=== PATIENT | male | born 1955 | race Caucasian/White ===

== ENCOUNTER → 2016-11-16 | Outpatient (CLI) | payer MEDICARE ==
[~2016-11-16] MED LIST: AMIO200T42 PO; CARV3.122 PO; DIGO125T PO; DIGO250T PO; DOCU-30 PO; FOLI-17 PO; FURO-92 PO; FURO20TA3 PO; LISI-167 PO; LISI5TAB7 PO; METO50TA82 PO; NICO1PAT4 TD; POTA20TA14 PO; POTA20TA6 PO; THIA100T6 PO; WARF5TAB PO; WARF5TAB7 PO-COUM
== END | disposition home or self-care (01) ==
LOC: CFH 12:44
PROVIDERS: ATTEND Internal Medicine Cardiovascular Disease
DX: I48.91 Unspecified atrial fibrillation (principal)
CPT/HCPCS: 93306

== ENCOUNTER 2016-11-19 08:06 | Observation (INO) | payer MEDICARE ==
[2016-11-18 11:53] LABS: ASPARTATE AMINO TRANSFERASE 33 U/L (15-37); BLOOD UREA NITROGEN 17 mg/dL (7-18)
[~2016-11-19] VITALS: Ht 182.9 cm; Wt 80.1 kg
[~2016-11-19 08:06] MED LIST changes: +METO75TA PO; +NITR0.4T8 SL; +POTA20PA8 PO; +SPIR25TA3 PO; +WARF5TAB7 PO
[2016-11-19] MEDS: SODIUM CHLORIDE 0.9% 1,000 ML IV SCH ×2 (08:54→15:46)
[2016-11-19 09:08] VITALS: BP 129/85
[2016-11-19] MEDS ORDERED: FENTANYL PF 250 MCG/5ML ONE (10:21)
[2016-11-19] MEDS ORDERED: MIDAZOLAM 1 MG/ML, 5ML ONE (10:22)
[2016-11-19] MEDS ORDERED: CEFAZOLIN 1,000 MG ONE (10:50)
[2016-11-19] MEDS ORDERED: PROPOFOL 10 MG/ML, 20ML ONE (10:50)
[2016-11-19] MEDS ORDERED: LIDOCAINE 2%, 20ML ONE (11:23)
[2016-11-19] MEDS ORDERED: ZOLPIDEM 5MG TABLET PO PRN (12:00)
[2016-11-19] MEDS ORDERED: NITROGLYCERIN 0.4 MG BOTTLE (25 TABS) SL SCH (12:00)
[2016-11-19] MEDS ORDERED: HYDROcodone/APAP 5/325 TABLET PO PRN (12:00)
[2016-11-19] MEDS ORDERED: ACETAMINOPHEN 325 MG TABLET PO PRN (12:30)
[2016-11-19] MEDS ORDERED: OXYcodone 5 MG/5 ML ORAL.SOL UDC PO PRN (12:30)
[2016-11-19] MEDS ORDERED: ONDANSETRON 2MG/ML, 2ML IVPush PRN (12:30)
[2016-11-19] MEDS ORDERED: ALBUTEROL/IPRATROPIUM 2.5MG/0.5MG, 3 ML NPPB PRN (12:30)
[2016-11-19] MEDS ORDERED: FENTANYL PF 100 MCG/2ML IV PRN (12:30)
[2016-11-19] MEDS ORDERED: HYDROmorphone 1 MG/ML, 1ML IV PRN (12:30)
[2016-11-19] MEDS ORDERED: MIDAZOLAM 1 MG/ML, 2ML IV PRN (12:30)
[2016-11-19] MEDS ORDERED: NITROGLYCERIN 0.4 MG BOTTLE (25 TABS) SL PRN (13:39)
[2016-11-19] MEDS ORDERED: NICOTINE 14MG/24 HR PATCH.TD24 TD SCH (14:00)
[2016-11-19] MEDS: CEFAZOLIN PMX 1GM/50ML 50 ML IVPB SCH ×2 (16:02→23:35)
[2016-11-19 19:12] VITALS: BP 134/87
[2016-11-19 20:00] VITALS: BP 134/87
[2016-11-19] MEDS: METOPROLOL TARTRATE 25 MG TABLET PO SCH (21:33)
[2016-11-19] MEDS: SODIUM CHLORIDE FLUSH 10ML SYR IVF SCH (21:36)
[2016-11-20 00:39] VITALS: BP 124/88
[2016-11-20 06:43] VITALS: BP 129/89
[2016-11-20] MEDS: METOPROLOL TARTRATE 25 MG TABLET PO SCH (07:32)
[2016-11-20] MEDS: SODIUM CHLORIDE FLUSH 10ML SYR IVF SCH (07:33)
[2016-11-20] MEDS ORDERED: FOLIC ACID 1 MG TABLET PO SCH (09:00)
[2016-11-20] MEDS ORDERED: DIGOXIN 0.125 MG TABLET PO SCH (09:00)
[2016-11-20] MEDS ORDERED: POTASSIUM CHLORIDE 20 MEQ PACKET PO SCH (09:00)
[2016-11-20] MEDS ORDERED: FUROSEMIDE 40 MG TABLET PO SCH (09:00)
[2016-11-20] MEDS ORDERED: LISINOPRIL 5 MG TABLET PO SCH (09:00)
[2016-11-20] MEDS ORDERED: SPIRONOLACTONE 25 MG TABLET PO SCH (09:00)
[2016-11-20] MEDS ORDERED: WARFARIN 5 MG TABLET PO-COUM SCH (18:00)
== END 2016-11-20 11:59 | disposition home or self-care (01) ==
LOC: CACL 08:06 → EDSTATUS 10:00 → ORIP 12:01 → 5SO 13:22
PROVIDERS: ADMIT Internal Medicine Cardiovascular Disease; ATTEND Internal Medicine Cardiovascular Disease
DX: I42.9 Cardiomyopathy, unspecified (principal); I50.9 Heart failure, unspecified; I48.91 Unspecified atrial fibrillation; I49.01 Ventricular fibrillation; I10 Essential (primary) hypertension; Z72.0 Tobacco use
CPT/HCPCS: 33249; 36005; 36415; 71010; 71020; 80053; 85025; 85610; 93005; 93640; 96365; 96366; C1722; C1892; C1894; C1895; G0378; J0690; J2250; J2704; J3010; J3490; Q9967

== ENCOUNTER 2016-12-20 11:31 | Inpatient (IN) | payer MEDICARE ==
[~2016-12-20] VITALS: Ht 182.9 cm; Wt 77.2 kg
[2016-12-20] MEDS ORDERED: SODIUM CHLORIDE FLUSH 10ML SYR IVF ONE (12:00)
[2016-12-20 12:16] LABS: BLOOD UREA NITROGEN 12 mg/dL (7-18)
[2016-12-20 12:19] LABS: ASPARTATE AMINO TRANSFERASE 47 U/L (15-37)
[2016-12-20 12:28] LABS: IS PT STATUS REG ER OR PRE ER? YES
[2016-12-20] MEDS ORDERED: METOPROLOL 1 MG/ML, 5ML IVPush ONE ×2 (13:00→14:30)
[2016-12-20] MEDS ORDERED: METOPROLOL 1 MG/ML, 5ML ONE ×2 (13:13→14:33)
[2016-12-20] MEDS ORDERED: LORazepam 2 MG/ML, 1ML ONE (13:15)
[2016-12-20] MEDS ORDERED: LORazepam 2 MG/ML, 1ML IVPush ONE (13:30)
[2016-12-20] MEDS: SODIUM CHLORIDE 0.9% 1,000 ML IV SCH (13:47)
[2016-12-20] MEDS: ENOXAPARIN 40 MG/0.4 ML SQ SCH (13:47)
[2016-12-20] MEDS ORDERED: NICOTINE 14MG/24 HR PATCH.TD24 ONE (13:53)
[2016-12-20] MEDS ORDERED: DIGOXIN 0.25 MG/ML, 2ML ONE (13:53)
[2016-12-20] MEDS ORDERED: morphine SULFATE 10 MG/ML, 1ML IVPush PRN (14:00)
[2016-12-20] MEDS ORDERED: LABETALOL 5MG/ML, 20ML IVPush PRN (14:00)
[2016-12-20] MEDS ORDERED: LORazepam 0.5MG TABLET PO PRN (14:00)
[2016-12-20] MEDS ORDERED: NITROGLYCERIN 0.4 MG BOTTLE (25 TABS) SL SCH (14:00)
[2016-12-20] MEDS ORDERED: POLYETHYLENE GLYCOL 17 GM PACKET PO PRN (14:00)
[2016-12-20] MEDS ORDERED: NICOTINE 14MG/24 HR PATCH.TD24 TD SCH (14:00)
[2016-12-20] MEDS ORDERED: GUAIFENESIN/DM 200-20MG, 10ML UDC PO PRN (14:00)
[2016-12-20] MEDS ORDERED: DIGOXIN 0.25 MG/ML, 2ML IVPush ONE ×2 (14:00→20:00)
[2016-12-20] MEDS ORDERED: ONDANSETRON ODT 4 MG PO PRN (14:00)
[2016-12-20] MEDS ORDERED: LORazepam 1MG TABLET PO PRN ×4 (14:00)
[2016-12-20] MEDS ORDERED: ONDANSETRON 2MG/ML, 2ML IVPush PRN (14:00)
[2016-12-20] MEDS ORDERED: LORazepam 2 MG/ML, 1ML IV PRN ×5 (14:00)
[2016-12-20] MEDS: NICOTINE 7 MG/24 HR PATCH.TD24 TD SCH (14:00)
[2016-12-20] MEDS ORDERED: MAGNESIUM SULFATE PMX 2GM/50ML 50 ML IV ONE (15:00)
[2016-12-20 16:28] VITALS: BP 146/95
[2016-12-20] MEDS: METOPROLOL TARTRATE 100 MG TABLET PO SCH (17:14)
[2016-12-20] MEDS: POTASSIUM CHLORIDE 20 MEQ, MAGNESIUM SULFATE 1 GM, FOLIC ACID 1 MG, THIAMINE 100 MG, MV... IV SCH (17:18)
[2016-12-20 17:49] LABS: DAU SCREEN DISCLAIMER
[2016-12-20] MEDS ORDERED: WARFARIN 5 MG TABLET PO-COUM ONE (18:00)
[2016-12-20 19:35] VITALS: BP 114/79
[2016-12-20 20:00] VITALS: BP 119/79
[2016-12-20 21:23] LABS: IS PT STATUS REG ER OR PRE ER? NO
[2016-12-21 01:30] VITALS: BP 130/85
[2016-12-21] MEDS: SODIUM CHLORIDE 0.9% 1,000 ML IV SCH (01:30)
[2016-12-21 05:47] LABS: ASPARTATE AMINO TRANSFERASE 42 U/L (15-37); BLOOD UREA NITROGEN 15 mg/dL (7-18)
[2016-12-21] MEDS: METOPROLOL TARTRATE 100 MG TABLET PO SCH ×2 (06:08→17:35)
[2016-12-21 06:14] LABS: IS PT STATUS REG ER OR PRE ER? NO
[2016-12-21 07:07] VITALS: BP 129/82
[2016-12-21] MEDS: SENNA/DOCUSATE TABLET PO SCH (09:00)
[2016-12-21] MEDS ORDERED: SODIUM PHOSPHATE 4 MEQ/ML IV SCH (09:00)
[2016-12-21] MEDS ORDERED: SODIUM PHOSPHATE 30 MMOL in SODIUM CHLORIDE 0.9% 500 ML IV ONE (09:00)
[2016-12-21] MEDS ORDERED: DIGOXIN 0.25 MG/ML, 2ML IVPush SCH (09:30)
[2016-12-21] MEDS: LISINOPRIL 5 MG TABLET PO SCH (09:59)
[2016-12-21] MEDS: FOLIC ACID 1 MG TABLET PO SCH (09:59)
[2016-12-21] MEDS: POTASSIUM CHLORIDE 20 MEQ TAB.ER.PRT PO SCH ×2 (09:59→17:36)
[2016-12-21] MEDS: SPIRONOLACTONE 25 MG TABLET PO SCH (09:59)
[2016-12-21] MEDS ORDERED: ACETAMINOPHEN 325 MG TABLET PO PRN (10:00)
[2016-12-21 10:38] VITALS: BP 117/79
[2016-12-21] MEDS: DIGOXIN 0.125 MG TABLET PO SCH (10:40)
[2016-12-21] MEDS ORDERED: SPIRONOLACTONE 25 MG TABLET PO SCH (11:00)
[2016-12-21 13:38] VITALS: BP 128/90
[2016-12-21] MEDS: NICOTINE 7 MG/24 HR PATCH.TD24 TD SCH (13:47)
[2016-12-21] MEDS: ENOXAPARIN 40 MG/0.4 ML SQ SCH (14:00)
[2016-12-21 17:31] VITALS: BP 120/82
[2016-12-21] MEDS: POTASSIUM CHLORIDE 20 MEQ, MAGNESIUM SULFATE 1 GM, FOLIC ACID 1 MG, THIAMINE 100 MG, MV... IV SCH (17:34)
[2016-12-21] MEDS ORDERED: WARFARIN 5 MG TABLET PO-COUM ONE (18:00)
[2016-12-21 20:24] VITALS: BP 119/73
[2016-12-22 02:00] VITALS: BP 134/100
[2016-12-22] MEDS: METOPROLOL TARTRATE 100 MG TABLET PO SCH (04:53)
[2016-12-22 05:19] LABS: BLOOD UREA NITROGEN 12 mg/dL (7-18)
[2016-12-22 06:51] VITALS: BP 126/82
[2016-12-22] MEDS: LISINOPRIL 5 MG TABLET PO SCH (08:34)
[2016-12-22] MEDS: DIGOXIN 0.125 MG TABLET PO SCH (08:34)
[2016-12-22] MEDS: SPIRONOLACTONE 25 MG TABLET PO SCH (08:35)
[2016-12-22] MEDS: SENNA/DOCUSATE TABLET PO SCH (08:35)
[2016-12-22] MEDS: FOLIC ACID 1 MG TABLET PO SCH (08:35)
[2016-12-22] MEDS ORDERED: WARFARIN 7.5 MG TABLET PO-COUM ONE (18:00)
== END 2016-12-22 09:07 | disposition left against medical advice (07) | DRG 309 ==
LOC: ED 13:31 → EDIP 13:32 → ED 14:20 → 5SO 15:14
PROVIDERS: ADMIT Hospitalist; ATTEND Hospitalist
PROC: 4B02XTZ Measurement of Cardiac Defibrillator, External Approach (ICD-10-PCS; principal; 2016-12-21)
DX: I48.1 Persistent atrial fibrillation (principal); I50.22 Chronic systolic (congestive) heart failure; F10.239 Alcohol dependence with withdrawal, unspecified; F17.203 Nicotine dependence unspecified, with withdrawal; D68.69 Other thrombophilia; I42.9 Cardiomyopathy, unspecified; K70.10 Alcoholic hepatitis without ascites; I11.0 Hypertensive heart disease with heart failure; E83.42 Hypomagnesemia; D64.9 Anemia, unspecified; D69.6 Thrombocytopenia, unspecified; D75.89 Other specified diseases of blood and blood-forming organs; Z79.01 Long term (current) use of anticoagulants; Z79.899 Other long term (current) drug therapy; Z86.74 Personal history of sudden cardiac arrest; Z95.810 Presence of automatic (implantable) cardiac defibrillator; Z71.41 Alcohol abuse counseling and surveillance of alcoholic
CPT/HCPCS: 36415; 71010; 76700; 80048; 80053; 80162; 80307; 82040; 82140; 83036; 83690; 83735; 84100; 84436; 84439; 84443; 84484; 85025; 85610; 87324; 93005; 96374; 96375; J3411; J3475; J3480; J7042; J1160; J2060; J7030; J7040

== ENCOUNTER 2018-11-30 14:14 | Emergency (ER) | payer MEDICAID, MEDICARE ==
[~2018-11-30] VITALS: Ht 180.3 cm; Wt 72.0 kg
[~2018-11-30 14:14] MED LIST changes: +DOCU-131 PO; -DOCU-30 PO; +FLUT9.9S NAS; +FURO40TA6 PO; +METO-99 PO; +NICO-486 TD; -NICO1PAT4 TD; +NITR0.4T28 SL; -NITR0.4T8 SL; +POTA20PA25 PO; -POTA20PA8 PO; -SPIR25TA3 PO; +SPIR25TA5 PO; -THIA100T6 PO; +THIA100T67 PO; +WARF-36 PO; +WARF-36 PO-COUM; -WARF5TAB7 PO; -WARF5TAB7 PO-COUM
--- NOTE | 2018-11-30 15:37 | NUR ---
PT BACK FROM CT.
[2018-11-30 16:49] VITALS: BP 122/61
[2018-12-05] MEDS ORDERED: ENOX80SY4 SQ (09:04)
[2018-12-05] MEDS ORDERED: NICO-486 TD (09:04)
[2018-12-05] MEDS ORDERED: MULT1TAB60 PO (09:04)
[2018-12-05] MEDS ORDERED: CARV6.2512 PO (09:04)
[2018-12-05] MEDS ORDERED: FOLI-17 PO (09:04)
[2018-12-05] MEDS ORDERED: MAGN400T50 PO (09:04)
[2018-12-05] MEDS ORDERED: LISI-167 PO (09:04)
[2018-12-05] MEDS ORDERED: ONDA4TAB13 PO (09:04)
[2018-12-05] MEDS ORDERED: THIA100T67 PO (09:04)
[2018-12-05] MEDS ORDERED: AMIO200T42 PO (09:04)
== END 2018-11-30 16:51 | disposition home or self-care (01) ==
LOC: ED 16:15
DX: S06.310A Contusion and laceration of right cerebrum without loss of consciousness, initial encounter (principal); G89.29 Other chronic pain; M25.551 Pain in right hip; E78.5 Hyperlipidemia, unspecified; I48.91 Unspecified atrial fibrillation; I50.9 Heart failure, unspecified; Z95.0 Presence of cardiac pacemaker; F17.200 Nicotine dependence, unspecified, uncomplicated; W01.0XXA Fall on same level from slipping, tripping and stumbling without subsequent striking against object, initial encounter; Y93.89 Activity, other specified; Y92.89 Other specified places as the place of occurrence of the external cause; Y99.8 Other external cause status
CPT/HCPCS: 70450; 99284

== ENCOUNTER 2019-01-08 13:47 | Inpatient (IN) | payer MEDICARE ==
[~2019-01-08] VITALS: Ht 180.3 cm; Wt 73.3 kg
[~2019-01-08 13:47] MED LIST changes: +CARV6.2512 PO; +ENOX80SY4 SQ; +MAGN400T50 PO; +MAGNESIUM SULFATE 1 GM/2 ML ONE; +MULT1TAB60 PO; +ONDA4TAB13 PO; +WARF7.5T PO-COUM
--- NOTE | 2019-01-08 13:55 | NUR ---
BIB [facility] FOR WHAT WAS INITIALLY THOUGHT TO BE A SEIZURE BUT WHEN HOOKED UP, PT WAS FOUND TO BE HAVING BOUTS OF V TACH. PT WAS SHOCKED BY AICD X2 IN FIELD. IV PLACED ANATOMY PROFESSOR, GIVEN LIDO 75 MG PUSH BOLUS AND THEN WAS STARTED ON LIDO DRIP AT 2MG/MIN IN ROUTE. NO FURTHER RUNS OF V TACH DURING TRANSPORT. UPON ARRIVAL TO ER PT A&OX4, ANSWERING ALL QUESTIONS APPROPRIATELY AND FOLLOWING ALL DIRECTIONS. CONNECTED TO ALL MONITORING, VSS SHOWING PACED RHYTHM AND PLACED ON PADS. NO COMPLAINTS FROM PT AT THIS TIME. MD AT BEDSIDE FOR ASSESSMENT. CALL LIGHT WITHN REACH.
[2019-01-08] MEDS ORDERED: SODIUM CHLORIDE FLUSH 10ML SYR IVF ONE (14:00)
[2019-01-08] MEDS ORDERED: AMIODARONE 900 MG in DEXTROSE 5% 482 ML IV PRN (14:00)
--- NOTE | 2019-01-08 14:00 | NUR ---
PT STARTED BE BECOME DIZZY, NOTED VTACH ON MONITOR. MD AT BEDSIDE. PT GIVEN 150 AMIODORONE PUSH PER MD ORDER. PT CURRENTLY BACK TO PACED RATE
[2019-01-08] MEDS ORDERED: AMIODARONE 150 MG in DEXTROSE 5% 100 ML IV ONE (14:04)
--- NOTE | 2019-01-08 14:12 | NUR ---
POLE TESTER AT BEDSIDE TO ASSESS PT
[2019-01-08 14:22] LABS: BASOPHILS # (AUTO) 0.03 x10^3/uL (0-0.1); BASOPHILS % (AUTO) 0 % (0-1); EOSINOPHILS % (AUTO) 0 % (1-7); LYMPHOCYTES # (AUTO) 0.82 x10^3/uL (1-3.4); LYMPHOCYTES % (AUTO) 13 % (22-44); MD NO; MEAN CORPUSCULAR HEMOGLOBIN 34.9 pg (27.5-34.5); MEAN CORPUSCULAR HGB CONC 33.5 g/dL (33.2-36.2); MEAN CORPUSCULAR VOLUME 104.2 fL (81-97); MEAN PLATELET VOLUME 7.5 fL (7.4-10.4); MONOCYTES # (AUTO) 0.39 x10^3/uL (0.2-0.8); MONOCYTES % (AUTO) 6 % (2-9); NEUTROPHILS # (AUTO) 5.23 x10^3/uL (1.8-6.8); NEUTROPHILS % (AUTO) 81 % (42-75); PLATELET COUNT 107 x10^3/uL (130-400); RED BLOOD COUNT 3.46 x10^6/uL (4.38-5.82); RED CELL DISTRIBUTION WIDTH 16.8 % (9.4-14.8)
[2019-01-08] MEDS ORDERED: FILTER 0.22 MICRON FOR AMIODARONE IV PRN (14:30)
[2019-01-08 14:37] LABS: ALBUMIN 3.2 g/dL (3.4-5.0); ANION GAP 9 mmol/L (5-15); CHLORIDE 104 mmol/L (98-107)
[2019-01-08 14:43] LABS: ALANINE AMINOTRANSFERASE 14 U/L (12-78); ALKALINE PHOSPHATASE 80 U/L (45-117); BILIRUBIN,TOTAL 4.2 mg/dL (0.2-1.0); CREATININE 1.14 mg/dL (0.7-1.3); TOTAL PROTEIN 7.6 g/dL (6.4-8.2); TROPONIN I < 0.015 ng/mL (0.000-0.045)
--- NOTE | 2019-01-08 14:45 | NUR ---
HOSPITALIST AT BEDSIDE.
--- NOTE | 2019-01-08 14:45 | NUR ---
AMIO DRIP STARTED BUT PT CONTINUING TO GO INTO VTACH AND DBECOME SYMPTOMATIC. MD UPDATED, ADDITIONAL BOLUS STARTED PER MD REQUEST.
[2019-01-08] MEDS ORDERED: POTASSIUM CHLORIDE 20 MEQ TAB.ER.PRT ONE (14:54)
[2019-01-08] MEDS ORDERED: MAGNESIUM SULFATE PMX 2GM/50ML 50 ML IV ONE (15:00)
[2019-01-08] MEDS ORDERED: ACETAMINOPHEN 325 MG TABLET PO PRN (15:00)
[2019-01-08] MEDS ORDERED: POTASSIUM CHLORIDE 20 MEQ TAB.ER.PRT PO ONE (15:00)
[2019-01-08] MEDS ORDERED: KETOROLAC 30 MG/1 ML IV PRN (15:00)
[2019-01-08] MEDS ORDERED: ONDANSETRON 2MG/ML, 2ML IVPush PRN (15:00)
[2019-01-08] MEDS ORDERED: OXYcodone IR 5MG TABLET PO PRN (15:00)
[2019-01-08] MEDS ORDERED: MORPHINE SULFATE 4 MG/ML, 1ML IVPush PRN (15:00)
[2019-01-08] MEDS ORDERED: hydrALAzine 20 MG/ML, 1ML IVPush PRN (15:00)
--- NOTE | 2019-01-08 15:20 | NUR ---
LUNCH RELIEF: PT RESTING IN BED WITH NO COMPLAINTS AT THIS TIME. PT REQUESTING MEAL TRAY. CALL TO DIETARY OFFICE TO REQUEST MEAL TRAY BE BROUGHT TO PATIENT. PT AWARE THAT MAY BE SOME TIME TO OBTAIN TRAY AND IS AGREEABLE.
[2019-01-08] MEDS ORDERED: LORazepam 1MG TABLET PO PRN ×2 (15:30)
[2019-01-08] MEDS ORDERED: LORazepam 2 MG/ML, 1ML IV PRN ×5 (15:30)
[2019-01-08] MEDS ORDERED: LORazepam 0.5MG TABLET PO PRN (15:30)
[2019-01-08] MEDS ORDERED: MAGNESIUM SULFATE PMX 2GM/50ML 50 ML ONE (15:37)
[2019-01-08 15:42] LABS: INTERNATIONAL NORMALIZED RATIO 1.62 (0.93-1.1); PROTHROMBIN TIME 16.7 Seconds (9.6-11.5)
[2019-01-08] MEDS ORDERED: MAGNESIUM SULFATE 1 GM/2 ML IVPush ONE (16:00)
--- NOTE | 2019-01-08 16:04 | NUR ---
PHARM CALLED TO VERIFY COUMADIN DOSAGE, INSTRUCTED TO WAIT AND THAT PHARM WILL COME UP WITH DOSE AFTER PT IS ADMITTED TO FLOOR. OTHER MEDS REQUESTED AT THIS TIME
--- NOTE | 2019-01-08 16:15 | NUR ---
REPORT GIVEN TO POLA RN, READY TO BE TRANSPORTED TO FLOOR
[2019-01-08] MEDS: D5%-0.45NACL+KCL 20MEQ 1,000 ML IV SCH (16:25)
--- NOTE | 2019-01-08 16:41 | NUR ---
DIET TRAY RECEIVED, PT EATING IN ROOM WITHOUT COMPLAINTS AT THIS TIME. SENA MOLINA. CALL LIGHT WITHIN REACH. PT HAS REMAINED ASYMPTOMATIC. WILL CONTINUE TO MONITOR
[2019-01-08 17:14] VITALS: BP 112/70
[2019-01-08] MEDS ORDERED: WARFARIN 10 MG TABLET PO-COUM ONE (18:00)
[2019-01-08] MEDS: CARVEDILOL 6.25 MG TABLET PO SCH (18:47)
[2019-01-08] MEDS: ENOXAPARIN 40 MG/0.4 ML SQ SCH (18:47)
[2019-01-08] MEDS: NICOTINE 7 MG/24 HR PATCH.TD24 TD SCH (18:48)
[2019-01-08 20:55] VITALS: BP 100/64
[2019-01-08 23:09] LABS: TROPONIN I < 0.015 ng/mL (0.000-0.045)
[2019-01-09 02:19] VITALS: BP 107/69
[2019-01-09 05:08] LABS: MEAN CORPUSCULAR HEMOGLOBIN 35.2 pg (27.5-34.5); MEAN CORPUSCULAR HGB CONC 33.5 g/dL (33.2-36.2); RED BLOOD COUNT 3.02 x10^6/uL (4.38-5.82); RED CELL DISTRIBUTION WIDTH 16.8 % (9.4-14.8)
[2019-01-09 05:11] LABS: ALBUMIN 2.7 g/dL (3.4-5.0); ANION GAP 7 mmol/L (5-15); CALCIUM 7.5 mg/dL (8.5-10.1); CHLORIDE 107 mmol/L (98-107)
[2019-01-09 05:18] LABS: ALANINE AMINOTRANSFERASE 18 U/L (12-78); ALKALINE PHOSPHATASE 69 U/L (45-117); TOTAL PROTEIN 6.4 g/dL (6.4-8.2); TROPONIN I < 0.015 ng/mL (0.000-0.045)
[2019-01-09 05:23] LABS: INTERNATIONAL NORMALIZED RATIO 1.34 (0.93-1.1); PROTHROMBIN TIME 13.9 Seconds (9.6-11.5)
[2019-01-09 05:37] LABS: BASOPHILS # (AUTO) 0.03 x10^3/uL (0-0.1); BASOPHILS % (AUTO) 1 % (0-1); EOSINOPHILS # (AUTO) 0.13 x10^3/uL (0-0.4); EOSINOPHILS % (AUTO) 2 % (1-7); LYMPHOCYTES # (AUTO) 1.09 x10^3/uL (1-3.4); LYMPHOCYTES % (AUTO) 19 % (22-44); MD SCAN; MEAN PLATELET VOLUME 8.1 fL (7.4-10.4); MONOCYTES # (AUTO) 0.44 x10^3/uL (0.2-0.8); MONOCYTES % (AUTO) 8 % (2-9); NEUTROPHILS # (AUTO) 4.02 x10^3/uL (1.8-6.8); NEUTROPHILS % (AUTO) 71 % (42-75); PLATELET COUNT 94 x10^3/uL (130-400)
[2019-01-09] MEDS: D5%-0.45NACL+KCL 20MEQ 1,000 ML IV SCH ×2 (06:48→17:29)
[2019-01-09] MEDS: CARVEDILOL 6.25 MG TABLET PO SCH ×2 (06:50→17:25)
[2019-01-09 07:52] VITALS: BP 115/72
[2019-01-09] MEDS ORDERED: MAGNESIUM SULFATE PMX 2GM/50ML 50 ML IV ONE (08:00)
[2019-01-09] MEDS: MULTIVITAMIN 1 TABLET PO SCH (08:27)
[2019-01-09] MEDS: MULTIVITS,STRESS FORMULA 1 TABLET PO SCH (08:27)
[2019-01-09] MEDS: CALCIUM CARBONATE 500 MG TAB.CHEW PO SCH ×2 (08:27→22:57)
[2019-01-09] MEDS: ASCORBIC ACID 500 MG TABLET PO SCH ×2 (08:27→16:43)
[2019-01-09] MEDS: FOLIC ACID 1 MG TABLET PO SCH (08:28)
[2019-01-09] MEDS: AMIODARONE 200 MG TABLET PO SCH ×2 (11:02→22:57)
[2019-01-09 12:04] VITALS: BP 101/66
[2019-01-09] MEDS: NICOTINE 7 MG/24 HR PATCH.TD24 TD SCH (14:57)
[2019-01-09] MEDS: CHOLECALCIFEROL 400 UNITS/ML ORAL SOL PO SCH (16:43)
[2019-01-09] MEDS: ENOXAPARIN 40 MG/0.4 ML SQ SCH (17:26)
[2019-01-09] MEDS ORDERED: THIAMINE 200 MG in DEXTROSE 5% 50 ML IVPB ONE (17:30)
[2019-01-09] MEDS ORDERED: WARFARIN 3 MG TABLET PO-COUM ONE (18:00)
[2019-01-09 20:13] VITALS: BP 116/77
[2019-01-10] VITALS (7 sets, daily range): BP systolic 117–147; BP diastolic 76–91
[2019-01-10 05:46] LABS: MEAN CORPUSCULAR HEMOGLOBIN 34.4 pg (27.5-34.5); MEAN CORPUSCULAR HGB CONC 32.9 g/dL (33.2-36.2); MEAN CORPUSCULAR VOLUME 104.4 fL (81-97); MEAN PLATELET VOLUME 8.1 fL (7.4-10.4); PLATELET COUNT 96 x10^3/uL (130-400); RED BLOOD COUNT 3.12 x10^6/uL (4.38-5.82); RED CELL DISTRIBUTION WIDTH 16.8 % (9.4-14.8)
[2019-01-10 05:56] LABS: CHLORIDE 105 mmol/L (98-107)
[2019-01-10 06:11] LABS: ALBUMIN 2.7 g/dL (3.4-5.0); ANION GAP 8 mmol/L (5-15); CALCIUM 8.2 mg/dL (8.5-10.1); CREATININE 0.96 mg/dL (0.7-1.3)
[2019-01-10] MEDS: CARVEDILOL 6.25 MG TABLET PO SCH ×2 (06:28→18:15)
[2019-01-10 06:35] LABS: MD SCAN
[2019-01-10 06:36] LABS: BASOPHILS # (AUTO) 0.02 x10^3/uL (0-0.1); BASOPHILS % (AUTO) 0 % (0-1); EOSINOPHILS # (AUTO) 0.08 x10^3/uL (0-0.4); EOSINOPHILS % (AUTO) 1 % (1-7); LYMPHOCYTES # (AUTO) 1.08 x10^3/uL (1-3.4); LYMPHOCYTES % (AUTO) 17 % (22-44); MONOCYTES # (AUTO) 0.44 x10^3/uL (0.2-0.8); MONOCYTES % (AUTO) 7 % (2-9); NEUTROPHILS # (AUTO) 4.72 x10^3/uL (1.8-6.8); NEUTROPHILS % (AUTO) 74 % (42-75)
[2019-01-10] MEDS ORDERED: MAGNESIUM SULFATE PMX 2GM/50ML 50 ML IV ONE ×2 (09:00)
[2019-01-10 09:17] LABS: INTERNATIONAL NORMALIZED RATIO 1.9 (0.93-1.1); PROTHROMBIN TIME 19.5 Seconds (9.6-11.5)
[2019-01-10] MEDS: ASCORBIC ACID 500 MG TABLET PO SCH ×2 (09:19→18:15)
[2019-01-10] MEDS: FUROSEMIDE 20 MG/2 ML IV SCH ×2 (09:20→17:00)
[2019-01-10] MEDS: LISINOPRIL 5 MG TABLET PO SCH (09:26)
[2019-01-10] MEDS: AMIODARONE 200 MG TABLET PO SCH ×2 (09:26→23:04)
[2019-01-10] MEDS: MULTIVITS,STRESS FORMULA 1 TABLET PO SCH (09:26)
[2019-01-10] MEDS: CALCIUM CARBONATE 500 MG TAB.CHEW PO SCH ×2 (09:27→23:03)
[2019-01-10] MEDS: MULTIVITAMIN 1 TABLET PO SCH (09:27)
[2019-01-10] MEDS: FOLIC ACID 1 MG TABLET PO SCH (09:27)
[2019-01-10] MEDS: SPIRONOLACTONE 25 MG TABLET PO SCH (12:54)
[2019-01-10] MEDS: NICOTINE 7 MG/24 HR PATCH.TD24 TD SCH (13:02)
[2019-01-10] MEDS ORDERED: POTASSIUM CHLORIDE 20 MEQ TAB.ER.PRT PO ONE (13:30)
[2019-01-10] MEDS: CHOLECALCIFEROL 400 UNITS/ML ORAL SOL PO SCH (14:44)
[2019-01-10] MEDS ORDERED: WARFARIN 10 MG TABLET PO-COUM ONE (18:00)
[2019-01-10] MEDS: ENOXAPARIN 40 MG/0.4 ML SQ SCH (18:15)
[2019-01-11 01:12] VITALS: BP 114/68
[2019-01-11 04:57] LABS: BASOPHILS # (AUTO) 0.02 x10^3/uL (0-0.1); BASOPHILS % (AUTO) 0 % (0-1); EOSINOPHILS # (AUTO) 0.09 x10^3/uL (0-0.4); EOSINOPHILS % (AUTO) 1 % (1-7); LYMPHOCYTES % (AUTO) 19 % (22-44); MD NO; MEAN CORPUSCULAR HGB CONC 32.4 g/dL (33.2-36.2); MEAN CORPUSCULAR VOLUME 104.8 fL (81-97); MEAN PLATELET VOLUME 7.7 fL (7.4-10.4); MONOCYTES # (AUTO) 0.68 x10^3/uL (0.2-0.8); MONOCYTES % (AUTO) 11 % (2-9); NEUTROPHILS # (AUTO) 4.27 x10^3/uL (1.8-6.8); NEUTROPHILS % (AUTO) 68 % (42-75); PLATELET COUNT 124 x10^3/uL (130-400); RED BLOOD COUNT 3.65 x10^6/uL (4.38-5.82); RED CELL DISTRIBUTION WIDTH 16.9 % (9.4-14.8)
[2019-01-11 05:02] LABS: ALANINE AMINOTRANSFERASE 20 U/L (12-78); ALBUMIN 2.9 g/dL (3.4-5.0); ANION GAP 7 mmol/L (5-15); CALCIUM 8.9 mg/dL (8.5-10.1); CHLORIDE 107 mmol/L (98-107); CREATININE 1.15 mg/dL (0.7-1.3)
[2019-01-11 05:04] LABS: ALKALINE PHOSPHATASE 75 U/L (45-117); BILIRUBIN,TOTAL 1.2 mg/dL (0.2-1.0); TOTAL PROTEIN 7.3 g/dL (6.4-8.2)
[2019-01-11 05:44] VITALS: BP 120/77
[2019-01-11] MEDS: CARVEDILOL 6.25 MG TABLET PO SCH (05:45)
[2019-01-11 08:31] VITALS: BP_SYST 90; BP_SYST 93; BP_DIAS 57; BP_DIAS 64
[2019-01-11] MEDS: CALCIUM CARBONATE 500 MG TAB.CHEW PO SCH (08:34)
[2019-01-11] MEDS: FOLIC ACID 1 MG TABLET PO SCH (08:35)
[2019-01-11] MEDS: MULTIVITAMIN 1 TABLET PO SCH (08:35)
[2019-01-11] MEDS: ASCORBIC ACID 500 MG TABLET PO SCH (08:35)
[2019-01-11] MEDS ORDERED: MAGNESIUM SULFATE PMX 2GM/50ML 50 ML IV ONE (09:00)
[2019-01-11] MEDS: LISINOPRIL 5 MG TABLET PO SCH (09:15)
[2019-01-11] MEDS: SPIRONOLACTONE 25 MG TABLET PO SCH (09:16)
[2019-01-11] MEDS: AMIODARONE 200 MG TABLET PO SCH (09:16)
[2019-01-11] MEDS ORDERED: LISI5TAB7 PO (09:37)
[2019-01-11] MEDS: MULTIVITS,STRESS FORMULA 1 TABLET PO SCH (10:14)
[2019-01-11 10:21] LABS: INTERNATIONAL NORMALIZED RATIO 2.86 (0.93-1.1); PROTHROMBIN TIME 28.8 Seconds (9.6-11.5)
[2019-01-11 11:52] VITALS: BP 117/79
== END 2019-01-11 14:00 | disposition home or self-care (01) | DRG 291 ==
LOC: ED 14:30 → EDIP 14:36 → 5SO 17:12 → DCLOUNGE 01-11 13:35
PROVIDERS: ADMIT Internal Medicine; ATTEND Internal Medicine
DX: I11.0 Hypertensive heart disease with heart failure (principal); I49.01 Ventricular fibrillation; I47.2 Ventricular tachycardia; D68.69 Other thrombophilia; I50.23 Acute on chronic systolic (congestive) heart failure; I42.0 Dilated cardiomyopathy; K70.30 Alcoholic cirrhosis of liver without ascites; D53.9 Nutritional anemia, unspecified; D69.6 Thrombocytopenia, unspecified; E78.5 Hyperlipidemia, unspecified; E83.42 Hypomagnesemia; E87.6 Hypokalemia; F10.20 Alcohol dependence, uncomplicated; I08.1 Rheumatic disorders of both mitral and tricuspid valves; F17.210 Nicotine dependence, cigarettes, uncomplicated; I48.2 Chronic atrial fibrillation; Z86.79 Personal history of other diseases of the circulatory system; Z79.01 Long term (current) use of anticoagulants; Z91.14 Patient's other noncompliance with medication regimen; Z95.810 Presence of automatic (implantable) cardiac defibrillator
CPT/HCPCS: 36415; 71045; 80053; 80069; 83735; 83880; 84100; 84145; 84443; 84484; 85025; 85610; 93005; 93306; 96374; 96375; G0378; J1650; J3411; J3475; J0282; J1940; J3480; J7060